=== PATIENT | male | born 1955 | race Caucasian/White ===

== ENCOUNTER 2021-07-23 11:09 | Emergency (ER) | payer MEDICARE, OTHER ==
[~2021-07-23] VITALS: Ht 182.9 cm; Wt 111.2 kg
[2021-07-23] MEDS ORDERED: ACETAMINOPHEN 325 MG TABLET PO ONE (13:00)
--- NOTE | 2021-07-23 13:26 | NUR ---
PT OK FOR D/C TRIAGE PER ER PAFitzC. PT REFUSES TYLNOL DOSE. PT GIVEN D/C PAPERWORK, VERBALZIED UNDERSTANDING.
[2021-07-23 13:27] VITALS: BP 140/78
== END 2021-07-23 14:12 | disposition home or self-care (01) ==
LOC: ED 13:00
DX: S20.211A Contusion of right front wall of thorax, initial encounter (principal); X58.XXXA Exposure to other specified factors, initial encounter; Y93.89 Activity, other specified; Y92.89 Other specified places as the place of occurrence of the external cause; Y99.8 Other external cause status
CPT/HCPCS: 71045; 93005; 99283